=== PATIENT | male | born 1925 | race Caucasian/White ===

== ENCOUNTER 2017-07-20 10:50 | Emergency (ER) | payer MEDICARE ==
[~2017-07-20 10:50] MED LIST: Sodium Chloride 0.9% 1,000 ML BAG ONE; Sodium Chloride 0.9% 100 ML BAG ONE
--- NOTE | 2017-07-20 11:14 | RAD ---
2 VIEWS CHEST: Date: 07/20/17 HISTORY: Altered mental status. COMPARISON: 12/26/15. FINDINGS: There are sternotomy wires. There is a normal cardiac silhouette. Pulmonary vessels and hilum are nor mal. Costophrenic angles are clear. No consolidation or mass. No pneumothorax or osseous abnormalitie s. IMPRESSION: No acute cardiopulmonary process. POS: [facility]
[2017-07-20 11:30] LABS: INR-International Normal Ratio 1.4; PTT 29.2 SEC (22.9-36.1)
[2017-07-20 11:43] LABS: CKMB 3.1 ng/mL (0-6.6)
[2017-07-20 11:50] LABS: Anisocytosis SLIGHT = 6-15 cells (100X) (0-5/hpf); Band 4 % (5-11); Hemoglobin 11.1 g/dL (14.0-18.0); Hypochromia SLIGHT = 6-15 cells (100X) (0-5/hpf); Large Platelets SLIGHT; Lymphocytes 10 % (21-51); MDiff Complete? YES; Mean Corpuscular HGB CONC 31.6 g/dL (32.0-36.0); Mean Corpuscular Hemoglobin 32.5 pg (27.0-31.0); Mean Platelet Volume 14.1 fL (7.4-10.4); Monocytes 3 % (0-10); Neutrophil 83 % (42-75); PLT Morphology Comment Appears Adequate; Platelet Count 138 thou/uL (130-400); RBC Distribution Width 13.9 % (11.5-14.5); White Blood Cell (WBC) Count 20.7 thou/uL (4.8-10.8)
[2017-07-20 11:58] LABS: ALT (SGPT) 14 U/L (8-55); AST (SGOT) 15 U/L (5-34); Alkaline Phosphatase 77 U/L (40-150); Anion Gap 19 mmol/L (10-20); BUN (Urea Nitrogen) 87 mg/dL (8.4-25.7); Bilirubin, Total 0.5 mg/dL (0.2-1.2); CK (CPK) 281 U/L (30-200); Calc. Creatinine Clearance 0 mL/min (70-130); Calcium 8.4 mg/dL (7.8-10.44); Carbon Dioxide 21 mmol/L (23-31); Chloride 135 mmol/L (98-107); Estimated GFR-MDRD 15; Glucose 167 mg/dL (83-110); Lipase 51 U/L (8-78); Protein, Total 7.2 g/dL (5.8-8.1); Sodium 172 mmol/L (136-145)
[2017-07-20 11:59] LABS: Troponin I 0.515 ng/mL (< 0.028)
[2017-07-20 12:26] LABS: Bilirubin Negative (Negative); Blood, Urine Moderate (Negative); Clarity Cloudy (Clear); Glucose, Urine (Dipstick) Negative (Negative); Leukocyte Moderate (Negative); Nitrite Negative (Negative); Protein, Urine (Dipstick) 100 mg/dL (Neg-Trace); Specific Gravity, Urine 1.015 (1.005-1.030); Urobilinogen 0.2 mg/dL (0.2-1.0); pH, Urine 5.5 (5.0-9.0)
[2017-07-20 12:29] LABS: RBC/HPF 21-50 HPF (0-3)
[2017-07-20 12:30] LABS: Bacteria/HPF 4+ HPF (None Seen)
[2017-07-20] MEDS ORDERED: Aspirin 300 MG Suppository ONE (13:26)
[2017-07-20 13:32] LABS: Albumin 2.5 g/dL (3.4-4.8)
[2017-07-20 13:34] LABS: Globulin 4.7 g/dL (2.4-3.5)
[2017-07-20] MEDS ORDERED: metroNIDAZOLE 500 MG/100 ML BAG ONE ×2 (13:45→13:46)
[2017-07-20] MEDS ORDERED: cefTRIAXone\\ROCEPHIN 1 GM VIAL ONE (13:45)
--- NOTE | 2017-07-20 14:05 | CT ---
CT OF THE ABDOMEN AND PELVIS: Date: 07/20/17 PROVIDED CLINICAL HISTORY: Abdominal distention. FINDINGS: No comparisons. The visualized lung bases are free of significant opacity. There is a hiatal hernia present. There is right-sided hydronephrosis and right hydroureter without apparent urinary tract calculus. Th e solid abdominal organs are suboptimally evaluated in the absence of IV contrast material, but demon strate an otherwise unremarkable unenhanced CT appearance. There is conspicuous distention of small bowel, primarily proximal to mid small bowel. Decompressed s mall bowel loops are seen involving the distal ileum. The exact site of transition between dilated an d normal caliber bowel is not definitely identified, though this appears to be within the central lef t abdomen. There is no evidence for pneumatosis, portal venous gas, or pneumoperitoneum. No free intraperitoneal fluid is evident. The osseous structures demonstrate no concerning lytic or blastic lesions. Vascular calcification is noted involving the abdominal aorta and its branches. Remote, healed fracture of right inferior pubic ramus. Remote appearing compression deformity involving L2. There is a small amount of free intraperitoneal fluid about the right hepatic margin, particularly in feriorly. IMPRESSION: 1. Findings compatible with small bowel obstruction. 2. Right-sided hydronephrosis and hydroureter, the etiology of which is not certain. POS: [facility]
== END 2017-07-20 14:10 | disposition short-term general hospital (02) ==
LOC: MADERS 10:50
DX: I21.9 Acute myocardial infarction, unspecified (principal); A41.9 Sepsis, unspecified organism; N18.9 Chronic kidney disease, unspecified; F03.90 Unspecified dementia, unspecified severity, without behavioral disturbance, psychotic disturbance, mood disturbance, and anxiety; E87.8 Other disorders of electrolyte and fluid balance, not elsewhere classified; N13.2 Hydronephrosis with renal and ureteral calculous obstruction; K56.609 Unspecified intestinal obstruction, unspecified as to partial versus complete obstruction; N39.0 Urinary tract infection, site not specified; G47.00 Insomnia, unspecified; I25.10 Atherosclerotic heart disease of native coronary artery without angina pectoris; E78.5 Hyperlipidemia, unspecified; Z79.899 Other long term (current) drug therapy
CPT/HCPCS: 36415; 51701; 71045; 74176; 80053; 81001; 82150; 82550; 82553; 83605; 83690; 83880; 84443; 84484; 85025; 85610; 85730; 87040; 87077; 87086; 87149; 87186; 93005; 94760; 96365; 96368; J0696; J7050

== ENCOUNTER 2017-08-24 18:25 | Emergency (ER) | payer MEDICARE ==
[2017-08-24 19:56] LABS: ALT (SGPT) 24 U/L (8-55); AST (SGOT) 25 U/L (5-34); Albumin 2.4 g/dL (3.4-4.8); Alkaline Phosphatase 227 U/L (40-150); Anion Gap 13 mmol/L (10-20); BUN (Urea Nitrogen) 21 mg/dL (8.4-25.7); Bilirubin, Total 0.2 mg/dL (0.2-1.2); Calc. Creatinine Clearance 0 mL/min (70-130); Calcium 7.9 mg/dL (7.8-10.44); Carbon Dioxide 24 mmol/L (23-31); Chloride 110 mmol/L (98-107); Estimated GFR-MDRD 53; Globulin 4.2 g/dL (2.4-3.5); Glucose 120 mg/dL (83-110); Potassium 3.5 mmol/L (3.5-5.1); Protein, Total 6.6 g/dL (5.8-8.1); Sodium 143 mmol/L (136-145)
[2017-08-24 20:07] LABS: #Basophils 0.1 thou/uL (0.0-0.2); #Eosinphils 0.4 thou/uL (0.0-0.7); #Lymphocytes 1.6 thou/uL (1.20-3.40); #Monocytes 0.8 thou/uL (0.11-0.59); #Neutrophils 8.1 thou/uL (1.40-6.50); %Basophils 0.6 % (0.0-1.0); %Eosinophils 3.9 % (0.0-10.0); %Lymphocytes 14.1 % (21.0-51.0); %Monocytes 7.7 % (0.0-10.0); %Neutrophils 73.6 % (42.0-75.0); Hemoglobin 6.7 g/dL (14.0-18.0); Mean Corpuscular HGB CONC 33.5 g/dL (32.0-36.0); Mean Corpuscular Volume 98.6 fl (80.0-94.0); Mean Platelet Volume 10.6 fL (7.4-10.4); Platelet Count 234 thou/uL (130-400); RBC Distribution Width 15.3 % (11.5-14.5); Red Blood Cell (RBC) Count 2.03 mill/uL (4.70-6.10)
--- NOTE | 2017-08-24 20:34 | RAD ---
PORTABLE CHEST: 08/24/17 PROVIDED CLINICAL HISTORY: Cough. FINDINGS: Comparison 07/29/17. Interval prominent increase in multifocal bilateral air space disease, primarily involving the mid to lower lung zones. Prominence of the pulmonary interstitium is also seen. The cardiac silhouette is p rominent in size. Median sternotomy changes are seen. IMPRESSION: Diffuse bilateral air space disease, asymmetrically effecting the mid and lower lung zones bilaterall y. Pulmonary edema, and pneumonia are possible. Followup is recommended. POS: [facility]
[2017-08-24 20:43] LABS: Bilirubin Negative (Negative); Blood, Urine Large (Negative); Glucose, Urine (Dipstick) Negative (Negative); Leukocyte Negative (Negative); Nitrite Negative (Negative); Protein, Urine (Dipstick) 30 mg/dL (Neg-Trace); Specific Gravity, Urine 1.015 (1.005-1.030); Urobilinogen 0.2 mg/dL (0.2-1.0)
[2017-08-24 20:45] LABS: Clarity Hazy (Clear)
[2017-08-24 20:46] LABS: Bacteria/HPF None Seen HPF (None Seen); RBC/HPF GREATER THAN 50-TNTC HPF (0-3); Squamous Epithelial 0-3 HPF (0-3); WBC/HPF 0-3 HPF (0-3)
== END 2017-08-24 21:04 | disposition short-term general hospital (02) ==
LOC: MADERS 18:25
DX: I50.9 Heart failure, unspecified (principal); D64.9 Anemia, unspecified; N28.9 Disorder of kidney and ureter, unspecified; R79.1 Abnormal coagulation profile
CPT/HCPCS: 36415; 71045; 80053; 81003; 81015; 82274; 83605; 83880; 85025; 85379; 87040

== ENCOUNTER 2017-08-29 05:51 | Emergency (ER) | payer MEDICARE ==
[2017-08-29 06:34] LABS: Hemoglobin 7.7 g/dL (14.0-18.0); Mean Corpuscular HGB CONC 32.6 g/dL (32.0-36.0); Mean Corpuscular Hemoglobin 31.6 pg (27.0-31.0); Mean Platelet Volume 9.8 fL (7.4-10.4); Platelet Count 146 thou/uL (130-400); RBC Distribution Width 15.2 % (11.5-14.5); Red Blood Cell (RBC) Count 2.45 mill/uL (4.70-6.10); White Blood Cell (WBC) Count 27.5 thou/uL (4.8-10.8)
[2017-08-29 06:42] LABS: INR-International Normal Ratio 1.5; PTT 31.9 SEC (22.9-36.1); Prothrombin Time 18.4 SEC (12.0-14.7)
[2017-08-29 06:44] LABS: Anisocytosis SLIGHT = 6-15 cells (100X) (0-5/hpf); Band 20 % (5-11); Lymphocytes 3 % (21-51); MDiff Complete? YES; Manual Diff?? YES; Monocytes 3 % (0-10); Neutrophil 74 % (42-75)
[2017-08-29 06:45] LABS: PLT Morphology Comment Appears Adequate
[2017-08-29 06:54] LABS: ALT (SGPT) 75 U/L (8-55); AST (SGOT) 178 U/L (5-34); Albumin 2.3 g/dL (3.4-4.8); Alkaline Phosphatase 226 U/L (40-150); Anion Gap 20 mmol/L (10-20); BUN (Urea Nitrogen) 34 mg/dL (8.4-25.7); Bilirubin, Total 0.5 mg/dL (0.2-1.2); CK (CPK) 148 U/L (30-200); Calc. Creatinine Clearance 0 mL/min (70-130); Calcium 7.6 mg/dL (7.8-10.44); Carbon Dioxide 20 mmol/L (23-31); Chloride 107 mmol/L (98-107); Estimated GFR-MDRD 24; Globulin 3.8 g/dL (2.4-3.5); Glucose 92 mg/dL (83-110); Potassium 3.8 mmol/L (3.5-5.1); Protein, Total 6.1 g/dL (5.8-8.1); Sodium 143 mmol/L (136-145)
[2017-08-29 06:56] LABS: Troponin I 0.285 ng/mL (< 0.028)
[2017-08-29 07:02] LABS: CKMB 2.4 ng/mL (0-6.6)
[2017-08-29] MEDS ORDERED: Azithromycin 500 MG VIAL ONE (07:18)
[2017-08-29] MEDS ORDERED: methylPREDNISolone Sod Succ/PF 125 MG/2 ML VIAL ONE (07:18)
[2017-08-29] MEDS ORDERED: Ondansetron HCl/PF 4 MG/2 ML Vial ONE (07:18)
[2017-08-29] MEDS ORDERED: cefTRIAXone\\ROCEPHIN 2 GM VIAL ONE (07:18)
[2017-08-29] MEDS ORDERED: Dexamethasone 10 MG/ML VIAL ONE (07:18)
[2017-08-29] MEDS ORDERED: DOPamine 400 MG/D5W 250 ML 250 ML ONE (07:52)
--- NOTE | 2017-08-29 08:12 | RAD ---
PORTABLE SEMIUPRIGHT CHEST 1 VIEW: Date: 08/29/17 HISTORY: 89-year-old male with history of dyspnea. FINDINGS: There is cardiomegaly with bilateral vascular congestion, interstitial and alveolar edema, and eviden ce of pleural effusion. These changes appear possibly slightly worse from the 08/24/17 study. IMPRESSION: Minimally progressive evidence for congestive heart failure and pulmonary edema when compared to prio r study. Continue short-term follow-up for clearing or stability. POS: [facility]
[2017-08-29 09:02] LABS: Bilirubin Negative (Negative); Blood, Urine Large (Negative); Clarity Cloudy (Clear); Glucose, Urine (Dipstick) Negative (Negative); Leukocyte Large (Negative); Nitrite Positive (Negative); Protein, Urine (Dipstick) 100 mg/dL (Neg-Trace); pH, Urine 8.5 (5.0-9.0)
[2017-08-29 09:03] LABS: Bacteria/HPF 3+ HPF (None Seen); WBC/HPF 21-50 HPF (0-3)
[2017-08-29] MEDS ORDERED: Albuterol Sulfate 2.5 mg/0.5 ml Neb ONE (09:08)
[2017-08-29] MEDS ORDERED: Furosemide 20 MG/2 ML VIAL ONE (09:09)
[2017-08-29] MEDS ORDERED: Sodium Chloride 0.9% 100 ML BAG ONE (14:15)
[2017-08-29] MEDS ORDERED: Sodium Chloride 0.9% 1,000 ML BAG ONE (14:15)
== END 2017-08-29 09:52 | disposition short-term general hospital (02) ==
LOC: MADERS 05:51
DX: A41.9 Sepsis, unspecified organism (principal); J18.9 Pneumonia, unspecified organism; I13.0 Hypertensive heart and chronic kidney disease with heart failure and stage 1 through stage 4 chronic kidney disease, or unspecified chronic kidney disease; N18.3 Chronic kidney disease, stage 3 (moderate); I50.9 Heart failure, unspecified; E78.5 Hyperlipidemia, unspecified; F03.90 Unspecified dementia, unspecified severity, without behavioral disturbance, psychotic disturbance, mood disturbance, and anxiety; I25.2 Old myocardial infarction; F32.9 Major depressive disorder, single episode, unspecified; F41.9 Anxiety disorder, unspecified; F22 Delusional disorders; D64.9 Anemia, unspecified; R79.89 Other specified abnormal findings of blood chemistry; Z79.899 Other long term (current) drug therapy; Z79.82 Long term (current) use of aspirin
CPT/HCPCS: 71045; 80053; 81001; 82274; 82553; 83605; 83880; 84484; 85025; 85379; 85610; 85730; 87040; 87077; 87081; 87086; 87186; 87430; 87804; 93005; 94760; 96361; 96365; 96368; 96375; J0456; J0696; J1100; J1265; J1940; J2405; J2930; J3370; J7050; J7611; J7620